=== PATIENT | male | born 1930 | race Caucasian/White ===

== ENCOUNTER 2016-09-14 10:42 | Emergency (ER) | payer MEDICARE ==
--- NOTE | 2016-09-19 16:13 | ER ---
ADMIT: 09/14/2016 RM/LOC: ER [facility] MR#: [id number] [address] [id number] MAGGIE BULLARD [facility] [address] [place] [address] Emergency Room Report SEX: M AGE: 85 : 1930 DATE: 09/14/2016 ADDENDUM: An 85-year-old white male coming in after being found down. Evidently, he has dementia. He is at [facility] and he essentially had [facility] away from the prison. They will take him back. We did work him up. CT head and face, CBC, chemistry is all negative at this time. I spoke with his power of ip attorney, Song Renner and he is okay with that and will come to pick him up. CONDITION ON DISCHARGE: Good. Anuj Rogers MD/ arleen JOB #: [id number] CC: Anuj Rogers MD, Attending Physician Porfirio Anaya MD, Family Physician
== END 2016-09-14 14:47 | disposition home or self-care (01) ==
LOC: ER 10:42
DX: S00.83XA Contusion of other part of head, initial encounter (principal); F03.90 Unspecified dementia, unspecified severity, without behavioral disturbance, psychotic disturbance, mood disturbance, and anxiety; Y93.01 Activity, walking, marching and hiking; Y92.410 Unspecified street and highway as the place of occurrence of the external cause